=== PATIENT | male | born 1955 | race Caucasian/White ===

== ENCOUNTER 2020-07-29 12:27 | Emergency (ER) | payer BC, OTHER ==
--- NOTE | 2020-07-29 12:54 | EDM.PDOC ---
ED HPI GENERAL MEDICAL PROBLEM - General Chief Complaint: Chest Pain Stated Complaint: CHEST PAIN Time Seen by Provider: 07/29/20 12:42 Source of Information: Reports: Patient History Limitations: Reports: No Limitations - History of Present Illness INITIAL COMMENTS - FREE TEXT/NARRATIVE: Patient is a 65-year-old male who presents today for chest pain that started last night. Patient's pain is in epigastric area and does not radiate. Pain is not made worse or better with anything. Patient states it feels more of a burning sensation but went to the [facility] was told to come to the ED for further checkup. Patient denies any fever chills nausea vomiting or shortness of breath. mid sternal Pain Score (Numeric/FACES): 3 - Related Data Allergies Allergy/AdvReac Type Severity Reaction Status Date / Time No Known Allergies Allergy Verified 07/29/20 12:55 Home Meds: Home Meds . [No Known Home Meds] 07/29/20 [History] ED ROS GENERAL - Review of Systems Review Of Systems: See Below Constitutional: Reports: No Symptoms HEENT: Reports: No Symptoms Respiratory: Reports: No Symptoms Cardiovascular: Reports: Chest Pain Endocrine: Reports: No Symptoms GI/Abdominal: Reports: No Symptoms : Reports: No Symptoms Musculoskeletal: Reports: No Symptoms Skin: Reports: No Symptoms Neurological: Reports: No Symptoms Psychiatric: Reports: No Symptoms Hematologic/Lymphatic: Reports: No Symptoms Immunologic: Reports: No Symptoms ED EXAM, GENERAL - Physical Exam Exam: See Below Exam Limited By: No Limitations General Appearance: Alert Eye Exam: Bilateral Eye: EOMI, PERRL Head: Atraumatic Respiratory/Chest: No Respiratory Distress, Lungs Clear Cardiovascular: Normal Peripheral Pulses, Regular Rate, Rhythm GI/Abdominal: Normal Bowel Sounds, Soft, Non-Tender Extremities: Normal Range of Motion Neurological: Alert, Oriented, CN II-XII Intact, Normal Cognition Course - Vital Signs Last Recorded V/S: Last Vital Signs Temp 98.6 F 07/29/20 13:21 Pulse 76 07/29/20 16:18 Resp 16 07/29/20 16:18 BP 99/60 07/29/20 16:18 Pulse Ox 94 L 07/29/20 16:18 - Orders/Labs/Meds Labs: Laboratory Tests 07/29/20 07/29/20 07/29/20 Range/Units 12:40 12:40 15:41 WBC 6.61 (4.0-11.0) K/uL RBC 4.78 (4.50-5.90) M/uL Hgb 15.3 (13.0-17.0) g/dL Hct 46.3 (38.0-50.0) % MCV 96.9 (80.0-98.0) fL MCH 32.0 (27.0-32.0) pg MCHC 33.0 (31.0-37.0) g/dL RDW Std Deviation 46.8 (28.0-62.0) fl RDW Coeff of Chente 13 (11.0-15.0) % Plt Count 167 (150-400) K/uL MPV 9.50 (7.40-12.00) fL Neut % (Auto) 69.4 (48.0-80.0) % Lymph % (Auto) 21.2 (16.0-40.0) % [place]cock % (Auto) 8.0 (0.0-15.0) % Eos % (Auto) 1.2 (0.0-7.0) % Baso % (Auto) 0.2 (0.0-1.5) % Neut # (Auto) 4.6 (1.4-5.7) K/uL Lymph # (Auto) 1.4 (0.6-2.4) K/uL Glasscock # (Auto) 0.5 (0.0-0.8) K/uL Eos # (Auto) 0.1 (0.0-0.7) K/uL Baso # (Auto) 0.0 (0.0-0.1) K/uL Nucleated RBC % 0.0 /100WBC Nucleated RBCs # 0 K/uL Sodium 140 (136-148) mmol/L Potassium 4.1 (3.5-5.1) mmol/L Chloride 106 (98-107) mmol/L Carbon Dioxide 24.5 (21.0-32.0) mmol/L BUN 29 H (7.0-18.0) mg/dL Creatinine 1.3 (0.8-1.3) mg/dL Est Cr Clr Drug Dosing 56.27 mL/min Estimated GFR (MDRD) 55.8 ml/min Glucose 103 (74-106) mg/dL Calcium 9.4 (8.5-10.1) mg/dL Total Bilirubin 0.6 (0.2-1.0) mg/dL AST 32 (15-37) IU/L ALT 43 (14-63) IU/L Alkaline Phosphatase 56 (46-116) U/L Creatine Kinase 107 (26-308) U/L Troponin I < 0.050 < 0.050 (0.000-0.056) ng/mL Total Protein 7.9 (6.4-8.2) g/dL Albumin 3.7 (3.4-5.0) g/dL Globulin 4.2 H (2.6-4.0) g/dL Albumin/Globulin Ratio 0.9 (0.9-1.6) - Re-Assessments/Exams Free Text/Narrative Re-Assessment/Exam: 07/29/20 14:11 Initial tropes are negative. Plan was to admit patient observation to trend troponins however patient preferred to sign her AMA. We able to convince patient is to be stay for a second set of troponins. Patient has a risk of signing out AGAINST MEDICAL ADVICE. Departure - Departure Time of Disposition: 17:59 Disposition: Against Medical Advice 07 Condition: Good Clinical Impression: ACS (acute coronary syndrome) - Discharge Information Referrals: [facility] [Primary Care Provider] - Forms: ED Department Discharge Sepsis Event Note (ED) - Evaluation Sepsis Screening Result: No Definite Risk - Focused Exam Vital Signs: Vital Signs Temp Pulse Resp BP Pulse Ox 07/29/20 16:18 76 16 99/60 94 L 07/29/20 15:48 79 16 110/67 94 L 07/29/20 15:18 78 16 112/79 94 L 07/29/20 15:03 81 16 111/78 95 07/29/20 14:48 79 16 117/87 94 L 07/29/20 14:33 86 16 125/77 94 L 07/29/20 14:18 78 16 114/78 92 L 07/29/20 14:03 81 17 104/80 93 L 07/29/20 13:48 81 18 104/80 95 07/29/20 13:33 80 18 123/87 94 L 07/29/20 13:23 76 18 125/85 94 L 07/29/20 13:21 98.6 F 81 18 125/85 92 L 07/29/20 13:03 81 18 120/89 94 L 07/29/20 12:48 83 18 126/87 94 L 07/29/20 12:44 96.9 F 84 18 121/87 93 L 07/29/20 12:33 98.6 F 82 18 121/87 94 L - Assessment/Plan Plan: Patient is a 65-year-old male presents today for chest pain epigastric area was nonradiating. Patient EKG not show any signs of STEMI. Heart score is 2 for age and risk factors. Labs chest is rate EKG and reassess.
--- NOTE | 2020-07-29 13:23 | CR ---
INDICATION: Chest pain COMPARISON: None TECHNIQUE: PA and lateral views of the chest were acquired FINDINGS: TUBES AND LINES: None. HEART AND MEDIASTINUM: The heart size is normal. The mediastinal contour appears normal for patient age.Tortuous thoracic aorta LUNGS AND PLEURAL SPACES: The lungs appear normal.The pleural spaces are unremarkable. OSSEOUS STRUCTURES: Age-appropriate appearance. No acute focal finding.Postoperative changes the left shoulder IMPRESSION: No evidence of active pulmonary disease. Dictated by Ananth Devine MD @ Jul 29 2020 1:21PM Signed by Dr. Ananth Devine @ Jul 29 2020 1:22PM
[2020-07-29 13:25] LABS: BLOOD UREA NITROGEN,BUN 29 mg/dL (7.0-18.0); CARBON DIOXIDE,CO2 24.5 mmol/L (21.0-32.0); CHLORIDE,CL 106 mmol/L (98-107); GLUCOSE RANDOM 103 mg/dL (74-106); POTASSIUM,K 4.1 mmol/L (3.5-5.1); SODIUM,NA 140 mmol/L (136-148)
== END 2020-07-29 16:32 | disposition left against medical advice (07) ==
LOC: MW.ED 12:27
DX: I24.9 Acute ischemic heart disease, unspecified (principal)
CPT/HCPCS: 36415; 71046; 71046-26; 80053; 82550; 84484; 85025; 93005; 93010; 99284; 99285-25

== ENCOUNTER 2020-08-04 15:25 | Emergency (ER) | payer OTHER ==
[2020-08-04] MEDS ORDERED: Aspirin 81 MG Tab.Chew PO ONE (15:36)
[2020-08-04] MEDS ORDERED: Alum Hydrox/Mag Hydrox/Simeth 15 ML, Metoclopramide 5 MG, Lidocaine 2% 5 ML PO ONE ×3 (15:40)
[2020-08-04] MEDS ORDERED: Pantoprazole 80 MG in Sodium Chloride 0.9% 20 ML IVPUSH ONE (15:40)
--- NOTE | 2020-08-04 15:40 | PCM.SN.2 ---
#1 Interpretation EKG Date: 08/04/20 Time: 15:39 Rhythm: NSR Rate (Beats/Min): 91 [place]: Normal P-Wave: Present QRS: Normal ST-T: Normal QT: Normal NE/PQ Interval: 169 Comparison: NA - No Prior EKG EKG Interpretation Comments: normal EKG
[2020-08-04] MEDS ORDERED: Sodium Chloride 0.9% 10 ML Syringe FLUSH PRN (15:42)
[2020-08-04] MEDS ORDERED: Sodium Chloride 0.9% 2.5 ML Syringe FLUSH PRN (15:42)
--- NOTE | 2020-08-04 15:46 | EDM.PDOC ---
ED HPI GENERAL MEDICAL PROBLEM - General Chief Complaint: Chest Pain Stated Complaint: PAIN FROM CHEST TO WAIST Time Seen by Provider: 08/04/20 15:35 Source of Information: Reports: Patient History Limitations: Reports: No Limitations - History of Present Illness INITIAL COMMENTS - FREE TEXT/NARRATIVE: HISTORY AND PHYSICAL: History of present illness: Patient is a 65-year-old male who presents to the emergency room with complaints of epigastric pain that radiates into his chest and down to his bellybutton. He states he has had this pain for several days and was actually seen in our emergency room on 07/29/2020 did have a cardiac work-up with serial troponins which were negative. Ultimately he signed out AMA as he did not want to be admitted for observation. Today he called the [facility] as his pain was worse, states it is unbearable when he tries to eat or drink, they recommended he come to the emergency room for evaluation. Patient states the pain is constant al though is worse with eating and drinking. He does have nausea and vomiting associated with it. States the pain can sometimes wrap around to the right and left lateral chest. Patient denies any fever, chills, headache, change in vision, syncope or near syncope. Denies any back pain, shortness of breath, distress or cough. Denies any diarrhea, constipation or dysuria. Has not noted any blood in urine or stool. Patient has been eating and drinking appropriately. Review of systems: As per history of present illness and below otherwise all systems reviewed and negative. Past medical history: As per history of present illness and as reviewed below otherwise noncontributory. Surgical history: As per history of present illness and as reviewed below otherwise noncontributory. Social history: See social history for further information Family history: As per history of present illness and as reviewed below otherwise noncontributory. Physical exam: General: Well developed and well nourished 65 year old male. Alert and orientated x 3. Nontoxic in appearance and in no acute distress. Vital signs are stable and have been reviewed by me. Nursing notes were reviewed. HEENT: Atraumatic, normocephalic, pupils equal and reactive bilaterally, negative for conjunctival pallor or scleral icterus, mucous membranes moist, TMs normal bilaterally, throat clear, neck supple, nontender, trachea midline. No drooling or trismus noted. No meningeal signs. No hot potato voice noted. Lungs: Clear to auscultation, breath sounds equal bilaterally, chest nontender. Normal work of breathing, no accessory muscles used. Heart: S1S2, regular rate and rhythm without overt murmur Abdomen: Soft, obese, RUQ tenderness and epigastric tenderness. Negative for masses or hepatosplenomegaly. Negative for costovertebral tenderness. Pelvis: Stable nontender. Skin: Intact, warm, dry. No lesions or rashes noted. Hematologic: No petechiae or purpra. Mucosa appropriate color and normal nail bed color and refill. Extremities: Atraumatic, moves all extremities per self without difficulty or deficits, negative for cords or calf pain. Neurovascular unremarkable. Neuro: Awake, alert, oriented. Cranial nerves II through XII unremarkable. Cerebellum unremarkable. Motor and sensory unremarkable throughout. Exam nonfocal. Psychiatric: Mood and affect are appropriate. Normal thought process. Answering questions appropriately. Notes: [facility]: states he has a history of Peptic Ulcer Disease. Patient does not ever recall having any upper GI scopes done nor does he take any antacids or PPI. EKG shows a normal sinus rhythm with rate of 91. No evidence STEMI. Patient's chest x-ray shows linear right basilar subsegmental atelectasis. Otherwise no acute any is noted. Patient does have an elevated D-dimer, will do a CT of the chest to rule out PE. CT chest shows no evidence of PE. Mild linear atelectasis in the lung bases. Mild fatty infiltration of the liver. CT abd/pelvis shows findings consistent with acute cholecystitis. No sign of biliary duct dilatation. There is multiple small nonobstructive calculi seen in both kidneys. No sign of hydr onephrosis, hydroureter or ureterolithiasis. Mild fatty infiltration of the liver. Mild diverticulosis of the ascending colon and proximal sigmoid with no sign of diverticulitis. Mild enlargement of the prostate. 1820:Dr. Tavarez, general surgeon on-call was consulted on this case. He was able to review the patient's CT along with his chart, he would feel better if this patient was transferred to a facility that has interventional radiology. Patient states he does feel improved, stating his pain is minimal. I have talked with the patient about today's findings, in addition to providing specific details for plan of care. He is agreeable to transfer. 182: [facility] in [place] was called; they are checking bed availability and will call back with bed status. 1899: [place] does not have any beds available. [facility] called; waiting for them to return call to check for placement. 1907: [facility] is at capacity, they only have COVID beds available at this time. Patients COVID status is pending, but we do not have any COVID concerns with this patient at this time. 1914: Spoke with Dr Ramey at [facility], agreed to accept this patient. Patient continues to be stable and is aware of the transfer to [place]. We will give him something for pain as he states it is "creeping back up". Diagnostics: CBC, CMP, Lipase, Troponin, D.Dimer, CXR, EKG, CT chest/abd/pelvis Therapeutics: ASA, GI cocktail, Protonix, Zosyn Impression: Acute cholecystitis Plan: Transfer to [facility] via ground EMS Definitive disposition and diagnosis as appropriate pending reevaluation and review of above. - Related Data Allergies Allergy/AdvReac Type Severity Reaction Status Date / Time [id number] Reductase Allergy Other Verified 08/04/20 15:41 Inhibitor Home Meds: Home Meds . [No Known Home Meds] 07/29/20 [History] Past Medical History - Past Health History Medical/Surgical History: Denies Medical/Surgical History HEENT History: Reports: None Cardiovascular History: Reports: None Respiratory History: Reports: None Gastrointestinal History: Reports: GERD Genitourinary History: Reports: None Musculoskeletal History: Reports: None Neurological History: Reports: None Psychiatric History: Reports: None Endocrine/Metabolic History: Reports: None Hematologic History: Reports: Other (See Below) Other Hematologic History: MGUS Immunologic History: Reports: None Oncologic (Cancer) History: Reports: None Dermatologic History: Reports: None - Infectious Disease History Infectious Disease History: Reports: Chicken Pox, Measles, Mumps - Past Surgical History Head Surgeries/Procedures: Reports: None Social & Family History - Family History Family Medical History: No Pertinent Family History - Tobacco Use Tobacco Use Status *Q: Never Tobacco User - Caffeine Use Caffeine Use: Reports: None - Recreational Drug Use Recreational Drug Use: No ED ROS GENERAL - Review of Systems Review Of Systems: Comprehensive ROS is negative, except as noted in HPI. ED EXAM, GENERAL - Physical Exam Exam: See Below (See dictation) Course - Vital Signs Last Recorded V/S: Last Vital Signs Temp 97.2 F 08/04/20 15:30 Pulse 85 08/04/20 19:20 Resp 20 08/04/20 19:20 BP 111/81 08/04/20 19:20 Pulse Ox 97 08/04/20 19:20 - Orders/Labs/Meds Orders: Active Orders 24 hr Category Date Time Status EKG Documentation Completion [RC] STAT Care 08/04/20 15:35 Active Sodium Chloride 0.9% [Normal Saline] 1,000 ml Med 08/04/20 15:48 Active IV STAT Sodium Chloride 0.9% [Saline Flush] Med 08/04/20 15:42 Active 10 ml FLUSH ASDIRECTED PRN Sodium Chloride 0.9% [Saline Flush] Med 08/04/20 15:42 Active 2.5 ml FLUSH ASDIRECTED PRN Saline Lock Insert [OM.PC] Stat Oth 08/04/20 15:42 Ordered Medication Orders Sodium Chloride (Normal Saline) 1,000 mls @ 125 mls/hr IV STAT ONE Stop: 08/04/20 23:47 Last Admin: 08/04/20 15:59 Dose: 125 mls/hr Documented by: BLU Sodium Chloride (Saline Flush) 10 ml FLUSH ASDIRECTED PRN PRN Reason: Keep Vein Open Last Admin: 08/04/20 16:06 Dose: 10 ml Documented by: BLU Sodium Chloride (Saline Flush) 2.5 ml FLUSH ASDIRECTED PRN PRN Reason: Keep Vein Open Last Admin: 08/04/20 16:06 Dose: 2.5 ml Documented by: BLU Labs: Laboratory Tests 08/04/20 08/04/20 08/04/20 Range/Units 15:59 15:59 15:59 WBC 12.03 H (4.0-11.0) K/uL RBC 4.86 (4.50-5.90) M/uL Hgb 15.3 (13.0-17.0) g/dL Hct 46.1 (38.0-50.0) % MCV 94.9 (80.0-98.0) fL MCH 31.5 (27.0-32.0) pg MCHC 33.2 (31.0-37.0) g/dL RDW Std Deviation 44.5 (28.0-62.0) fl RDW Coeff of Chente 13 (11.0-15.0) % Plt Count 197 (150-400) K/uL MPV 9.30 (7.40-12.00) fL Neut % (Auto) 81.6 H (48.0-80.0) % Lymph % (Auto) 11.1 L (16.0-40.0) % Bacon % (Auto) 6.9 (0.0-15.0) % Eos % (Auto) 0.2 (0.0-7.0) % Baso % (Auto) 0.2 (0.0-1.5) % Neut # (Auto) 9.8 H (1.4-5.7) K/uL Lymph # (Auto) 1.3 (0.6-2.4) K/uL Bacon # (Auto) 0.8 (0.0-0.8) K/uL Eos # (Auto) 0.0 (0.0-0.7) K/uL Baso # (Auto) 0.0 (0.0-0.1) K/uL Nucleated RBC % 0.0 /100WBC Nucleated RBCs # 0 K/uL D-Dimer, Quantitative 1.25 H (0.0-0.50) mg/L FEU Sodium 138 (136-148) mmol/L Potassium 3.9 (3.5-5.1) mmol/L Chloride 101 (98-107) mmol/L Carbon Dioxide 23.7 (21.0-32.0) mmol/L BUN 18 (7.0-18.0) mg/dL Creatinine 1.3 (0.8-1.3) mg/dL Est Cr Clr Drug Dosing TNP Estimated GFR (MDRD) 55.8 ml/min Glucose 123 H (74-106) mg/dL Calcium 9.2 (8.5-10.1) mg/dL Total Bilirubin 1.1 H (0.2-1.0) mg/dL AST 19 (15-37) IU/L ALT 33 (14-63) IU/L Alkaline Phosphatase 50 (46-116) U/L Troponin I < 0.050 (0.000-0.056) ng/mL Total Protein 8.4 H (6.4-8.2) g/dL Albumin 3.7 (3.4-5.0) g/dL Globulin 4.7 H (2.6-4.0) g/dL Albumin/Globulin Ratio 0.8 L (0.9-1.6) Lipase (73-393) U/L SARS-CoV-2 RNA (FABY) (NEGATIVE) 08/04/20 08/04/20 Range/Units 15:59 18:30 WBC (4.0-11.0) K/uL RBC (4.50-5.90) M/uL Hgb (13.0-17.0) g/dL Hct (38.0-50.0) % MCV (80.0-98.0) fL MCH (27.0-32.0) pg MCHC (31.0-37.0) g/dL RDW Std Deviation (28.0-62.0) fl RDW Coeff of Chente (11.0-15.0) % Plt Count (150-400) K/uL MPV (7.40-12.00) fL Neut % (Auto) (48.0-80.0) % Lymph % (Auto) (16.0-40.0) % Bacon % (Auto) (0.0-15.0) % Eos % (Auto) (0.0-7.0) % Baso % (Auto) (0.0-1.5) % Neut # (Auto) (1.4-5.7) K/uL Lymph # (Auto) (0.6-2.4) K/uL Bacon # (Auto) (0.0-0.8) K/uL Eos # (Auto) (0.0-0.7) K/uL Baso # (Auto) (0.0-0.1) K/uL Nucleated RBC % /100WBC Nucleated RBCs # K/uL D-Dimer, Quantitative (0.0-0.50) mg/L FEU Sodium (136-148) mmol/L Potassium (3.5-5.1) mmol/L Chloride (98-107) mmol/L Carbon Dioxide (21.0-32.0) mmol/L BUN (7.0-18.0) mg/dL Creatinine (0.8-1.3) mg/dL Est Cr Clr Drug Dosing Estimated GFR (MDRD) ml/min Glucose (74-106) mg/dL Calcium (8.5-10.1) mg/dL Total Bilirubin (0.2-1.0) mg/dL AST (15-37) IU/L ALT (14-63) IU/L Alkaline Phosphatase (46-116) U/L Troponin I (0.000-0.056) ng/mL Total Protein (6.4-8.2) g/dL Albumin (3.4-5.0) g/dL Globulin (2.6-4.0) g/dL Albumin/Globulin Ratio (0.9-1.6) Lipase 121 (73-393) U/L SARS-CoV-2 RNA (FABY) NEGATIVE (NEGATIVE) Meds: Medications Generic Name Dose Route Start Last Admin Trade Name Jim PRN Reason Stop Dose Admin Sodium Chloride 1,000 mls @ 125 mls/hr 08/04/20 15:48 08/04/20 15:59 Normal Saline IV 08/04/20 23:47 125 mls/hr STAT ONE Administration Sodium Chloride 10 ml 08/04/20 15:42 08/04/20 16:06 Saline Flush FLUSH 10 ml ASDIRECTED PRN Administration Keep Vein Open Sodium Chloride 2.5 ml 08/04/20 15:42 08/04/20 16:06 Saline Flush FLUSH 2.5 ml ASDIRECTED PRN Administration Keep Vein Open Discontinued Medications Generic Name Dose Route Start Last Admin Trade Name Jim PRN Reason Stop Dose Admin Aspirin 324 mg 08/04/20 15:36 08/04/20 16:01 Aspirin PO 08/04/20 15:37 324 mg ONETIME ONE Administration Al Hydroxide/Mg Hydroxide 15 0 ml 08/04/20 15:40 08/04/20 16:04 ml/ Metoclopramide HCl 5 mg/ PO 08/04/20 15:41 1 each Lidocaine HCl 5 ml ONETIME ONE Administration Hydromorphone HCl 1 mg 08/04/20 19:48 Dilaudid IVPUSH 08/04/20 19:49 ONETIME ONE Pantoprazole Sodium 80 mg/ 20 mls @ 420 mls/hr 08/04/20 15:40 08/04/20 16:02 Sodium Chloride IVPUSH 08/04/20 15:42 420 mls/hr ONETIME ONE Administration Piperacillin Sod/Tazobactam 100 mls @ 100 mls/hr 08/04/20 18:21 08/04/20 18:30 Sod 4.5 gm/ Sodium Chloride IV 08/04/20 19:20 100 mls/hr ONETIME ONE Administration Iopamidol 100 ml 08/04/20 17:25 08/04/20 17:25 Isovue Multipack-370 (76%) IVPUSH 08/04/20 17:26 100 ml ONETIME ONE Administration Ondansetron HCl 4 mg 08/04/20 19:48 Zofran IVPUSH 08/04/20 19:49 ONETIME ONE Departure - Departure Time of Disposition: 19:59 Disposition: DC/[facility]fer to [facility] 02 Reason for Transfer *Q: Other Condition: Good Clinical Impression: Acute cholecystitis Referrals: PCP,None [Primary Care Provider] - Forms: ED Department Discharge Sepsis Event Note (ED) - Evaluation Sepsis Screening Result: No Definite Risk - Focused Exam Vital Signs: Vital Signs Temp Pulse Resp BP Pulse Ox 08/04/20 19:20 85 20 111/81 97 08/04/20 18:22 96 24 H 123/83 93 L 08/04/20 16:43 93 15 113/69 94 L 08/04/20 15:30 97.2 F 92 16 146/101 H 94 L - My Orders Last 24 Hours: My Active Orders 08/04/20 15:35 EKG Documentation Completion [RC] STAT 08/04/20 15:42 Sodium Chloride 0.9% [Saline Flush] 10 ml FLUSH ASDIRECTED PRN Sodium Chloride 0.9% [Saline Flush] 2.5 ml FLUSH ASDIRECTED PRN Saline Lock Insert [OM.PC] Stat 08/04/20 15:48 Sodium Chloride 0.9% [Normal Saline] 1,000 ml IV STAT - Assessment/Plan Last 24 Hours: My Active Orders 08/04/20 15:35 EKG Documentation Completion [RC] STAT 08/04/20 15:42 Sodium Chloride 0.9% [Saline Flush] 10 ml FLUSH ASDIRECTED PRN Sodium Chloride 0.9% [Saline Flush] 2.5 ml FLUSH ASDIRECTED PRN Saline Lock Insert [OM.PC] Stat 08/04/20 15:48 Sodium Chloride 0.9% [Normal Saline] 1,000 ml IV STAT
[2020-08-04] MEDS ORDERED: Sodium Chloride 0.9% 1,000 ML IV ONE (15:48)
--- NOTE | 2020-08-04 16:21 | CR ---
INDICATION: Chest pain. TECHNIQUE: Chest 1 view Comparison: 07/29/2020. Findings: Cardiomediastinal silhouette is unremarkable. Linear right basilar subsegmental atelectasis. No pleural effusion or pneumothorax. Left coracoclavicular screw is again noted. Impression: Linear right basilar subsegmental atelectasis. Otherwise no acute cardiopulmonary abnormality. Dictated by Christopher Rice MD @ Aug 04 2020 4:19PM Signed by Dr. Christopher Rice @ Aug 04 2020 4:21PM
[2020-08-04 16:31] LABS: BLOOD UREA NITROGEN,BUN 18 mg/dL (7.0-18.0); CARBON DIOXIDE,CO2 23.7 mmol/L (21.0-32.0); CHLORIDE,CL 101 mmol/L (98-107); GLUCOSE RANDOM 123 mg/dL (74-106); POTASSIUM,K 3.9 mmol/L (3.5-5.1); SODIUM,NA 138 mmol/L (136-148)
[2020-08-04] MEDS ORDERED: Iopamidol 755 MG/ML 500 ML Multipack Bottle IVPUSH ONE (17:25)
--- NOTE | 2020-08-04 18:07 | CT ---
INDICATION: Chest pain. Elevated D-dimer. COMPARISON: None available TECHNIQUE: CT examination of the chest was performed with the uneventful intravenous administration of 100 cc of Isovue 370 while 1 and 3 mm thick axial sections were obtained through the pulmonary arteries. Please note that all CT scans at this facility use dose modulation, iterative reconstruction, and/or weight-based dosing when appropriate to reduce radiation dose to as low as reasonably achievable. FINDINGS: : There is no sign of pulmonary embolism, with normal enhancement and branching of the pulmonary arteries. There is mild linear atelectasis in the posterior-lateral lung bases. Additional mild linear atelectasis is seen in the anterior right middle lobe and the anterior lingula at the lung base. The lungs are otherwise clear. There is no sign of mediastinal or hilar mass or adenopathy. There is minimal LAD coronary calcification. The heart is right normal in appearance for the patient`s age, as are the aorta and other ascending great vessels. There is no sign of supraclavicular or axillary mass or adenopathy. The visualized superior liver is slightly low in density from mild fatty infiltration. The visualized superior spleen, pancreas, kidneys, and adrenals are normal in appearance. There is mild scoliosis of the lumbar spine convex towards the right. There are moderate, age-appropriate hypertrophic changes scattered throughout the thoracic spine. IMPRESSION: No sign of pulmonary embolism. Mild linear atelectasis in the lung bases as described above. Mild fatty infiltration of the liver. Please note that all CT scans at this facility use dose modulation, iterative reconstruction, and/or weight-based dosing when appropriate to reduce radiation dose to as low as reasonably achievable. Dictated by Ryan Win MD @ Aug 04 2020 5:55PM Signed by Dr. Ryan Win @ Aug 04 2020 6:05PM
--- NOTE | 2020-08-04 18:15 | CT ---
INDICATION: Abdominal pain. COMPARISON: CT of the chest from today. TECHNIQUE: CT examination of the abdomen and pelvis was performed with the uneventful intravenous administration of Isovue 370 as part of the accompanying CT of the chest while 3 mm thick axial sections were obtained from the lung bases through the pubic symphysis. Oral contrast was not administered. Please note that all CT scans at this facility use dose modulation, iterative reconstruction, and/or weight-based dosing when appropriate to reduce radiation dose to as low as reasonably achievable. FINDINGS: In the abdomen, the liver is slightly low in density, representing mild fatty infiltration. There is no sign of mass. The spleen, pancreas and adrenals are normal in appearance. There is a nonobstructive 6 millimeter 2 additional nonobstructive 4 millimeter calculi are also seen in the lower pole of the right kidney. Calculus in the lower pole of the right kidney. On the left, there is a nonobstructive 5 millimeter calculus in the anterior interpolar region, a 2 millimeter nonobstructive calculus in the posterior interpolar region, and a 2 millimeter calculus in the upper pole. The gallbladder is mildly distended with thickening of its dong and mild pericholecystic inflammatory stranding, consistent with acute cholecystitis. There are several small dependent calcified gallstones in the gallbladder neck. Recommend correlation with ultrasound. No sign of a common bile duct dilatation. No definite choledocholithiasis seen. The abdominal aorta is normal in caliber with no sign of dilatation. There is no sign of retroperitoneal mass or adenopathy. The stomach, loops of small bowel, and left colon in the abdomen are normal in appearance. There is mild diverticulosis of the ascending colon. In the pelvis, the appendix is normal in appearance with no sign of inflammatory process. There is mild proximal sigmoid diverticulosis without evidence of diverticulitis. The loops of small bowel and colon in the pelvis are otherwise normal in appearance. The prostate is mildly enlarged and is otherwise normal in appearance. The urinary bladder is normal in appearance. There is no sign of pelvic or inguinal mass or adenopathy. There is no sign of free air or free fluid in the abdomen or pelvis. Mild linear areas of atelectasis are seen in the lateral lower lobes bilaterally and in the anterior aspect of the right middle lobe and lingula and adjacent to the lung base. There is mild scoliosis of the upper lumbar spine convex towards the left. There is moderate disc degenerative disease throughout the lumbar spine, related to the scoliosis. There is also prominent L2-3 disc degenerative disease. IMPRESSION: CT of the abdomen shows findings consistent with acute cholecystitis. Recommend correlation with ultrasound. No sign of biliary ductal dilatation. Multiple small nonobstructive calculi seen in both kidneys. No sign of hydronephrosis, hydroureter, or ureterolithiasis. Mild fatty infiltration of the liver. Mild diverticulosis of the ascending colon with no sign of diverticulitis. CT of the pelvis shows mild proximal sigmoid diverticulosis with no sign of diverticulitis. Mild enlargement of the prostate. Please note that all CT scans at this facility use dose modulation, iterative reconstruction, and/or weight-based dosing when appropriate to reduce radiation dose to as low as reasonably achievable. Dictated by Ryan Win MD @ Aug 04 2020 5:55PM Signed by Dr. Ryan iWn @ Aug 04 2020 6:14PM
[2020-08-04] MEDS ORDERED: Piperacillin/Tazobactam 4.5 GM in Sodium Chloride 0.9% 100 ML IV ONE (18:21)
[2020-08-04] MEDS ORDERED: HYDROmorphone 1 MG/ML Syringe IVPUSH ONE (19:48)
[2020-08-04] MEDS ORDERED: Ondansetron 4 MG/2 ML SDV IVPUSH ONE (19:48)
== END 2020-08-04 20:50 ==
LOC: MW.ED 15:25
DX: K81.0 Acute cholecystitis (principal); Z20.828 Contact with and (suspected) exposure to other viral communicable diseases; Z88.8 Allergy status to other drugs, medicaments and biological substances
CPT/HCPCS: 36415; 71045; 71275; 74177; 80053; 83690; 84484; 85025; 85379; 87635; 93005; 96365; 96375; 99285; A9270; C9113; J1170; J2405; J2543; J7030; J7050; Q9967; 93010; U0002